=== PATIENT | female | born 1985 | race Caucasian/White ===

== ENCOUNTER 2016-06-16 09:27 | Emergency (ER) | payer OTHER ==
--- NOTE | 2016-06-16 11:48 | DIAGNOSTIC IMAGING REPORT ---
PROCEDURE: XR LUMBAR SPINE 2 OR 3 VIEWS INDICATION: TRAUMA/INJURY TECHNIQUE: Three views. COMPARISON: None. FINDINGS: Bilateral pars defects at L5-S1 with a grade 1 spondylolisthesis. IMPRESSION: 1. Bilateral L5-S1 pars defects and a grade 1 spondylolisthesis.
--- NOTE | 2016-06-16 11:57 | DIAGNOSTIC IMAGING REPORT ---
PROCEDURE: CT LUMBAR SPINE W/O CONTRAST INDICATION: Fall injury. TECHNIQUE: Noncontrast axial images with sagittal and coronal reformations. COMPARISON: Lumbar spine x-ray 06/16/2016. FINDINGS: Bilateral L5 spondylolysis with grade 1 L5-S1 anterolisthesis and mild disc space narrowing. No fracture or suspicious osseous lesion. Paraspinal soft tissues are normal. L1-2: Normal appearance. L2-3: Normal appearance. L3-4: Normal appearance. L4-5: Normal appearance L5-S1: Grade 1 anterolisthesis with moderate broad-based disc bulge and mild left foraminal stenosis. No spinal stenosis. IMPRESSION: 1. Bilateral L5 spondylolysis with grade 1 anterolisthesis, disc bulge and mild left foraminal stenosis 2. Results discussed with Dr. Baird All CT scans at this facility use dose modulation, iterative reconstruction, and/or weight-based dosing when appropriate to reduce radiation dose to as low as reasonably achievable.
--- NOTE | 2016-06-16 12:08 | ED CLINICAL REPORT ---
Clinical Report - Physicians/Mid Levels [facility] [address] [place] [address] 06/16/2016 9:27 [id number] Time Seen: 10:01 Jun 16 2016. Arrived- By private vehicle. Historian- patient. CPT: ER phys charges level 4 (#[id number]). HISTORY OF PRESENT ILLNESS Chief Complaint: BACK INJURY and BACK PAIN. It is described as being moderate in degree and in the area of the lower lumbar spine. The quality is noted to be sharp, aching and "pain". No radiation. (Patient states "I tripped on my dog when I was coming down the stairs and I landed on my back".). She has had trouble walking. The patient has been limping when trying to walk. No numbness, weakness or tingling.). It is still present. No bladder dysfunction, bowel dysfunction, sensory loss or motor loss. Patient notes an injury. No other injury. Similar symptoms previously: None. Recent medical care: Not recently seen/assessed. REVIEW OF SYSTEMS No fever, chills, difficulty with urination, urinary frequency or hematuria. No skin rash, sore throat, cough, difficulty breathing or chest pain. No abdominal pain, nausea, vomiting, diarrhea or black stools. All systems otherwise negative, except as recorded above. PAST HISTORY Hypokalemia. Abnormal Test. UTI - Urinary Tract Infection. Gastritis. Vomiting. Pyelonephritis. Abd pain . Dyspnea. SOB. Bronchitis. Bronchospasm. Back Pain. Crush Injury, Upper Extremity. Contusion. Laceration. Medications: None. Allergies: Codeine. SOCIAL HISTORY Heavy tobacco smoker (cigarette)- less than 1 pack per day. No alcohol use or drug use. ADDITIONAL NOTES The nursing notes have been reviewed. PHYSICAL EXAM Vital Signs: 06/16/2016 09:35 BP: 130/78. HR: 85. RR: 14. O2 saturation: 99%. Temp: 98.3 F. Pain level now: 8/10. Appearance: Alert. Appears to be in pain. Patient in moderate distress. HEENT: Normal external inspection. ENT: Pharynx normal. Neck: Normal inspection. Neck nontender. Painless ROM. CVS: Heart sounds normal. Pulses normal. Respiratory: No respiratory distress. Breath sounds normal. Abdomen: Soft and nontender. Bowel sounds normal. Back: Muscle spasm of the back. Mild vertebral point tenderness over the lower lumbar spine. Moderate soft tissue tenderness in the left lower and lower central lumbar area. Limited ROM in the back. (Swelling and ecchymosis over the lower back.). Skin: Skin warm. Normal skin color. No rash. Extremities: Extremities exhibit normal ROM. Extremities nontender. Neuro: Oriented X 3. Mood/affect normal. No motor deficit. No sensory deficit. Reflexes normal. LABS, X-RAYS, AND EKG LS-Spine X-rays: (Question of L5 frature.). Views: AP, lateral and coned down view. Technique: good. The X-rays were independently viewed by me and interpreted contemporaneously by me. CT L-Spine: No acute findings. Note- Chronic congenital changes L5-S1. The study was independently viewed by me, interpreted by the radiologist and discussed with the radiologist. PROGRESS AND PROCEDURES Course of Care: HEplock Dilaudid 1 mg IV Ativan 1 mg IV Vicodin 2 po Soma 1 po motrin 600 mg po Patient is stable. Symptoms much better. Patient/family counseled. Disposition: Discharged. Condition: stable. CLINICAL IMPRESSION Single contusion with soft tissue hematoma to the lower back. Fall from stairs and on same level by slipping. INSTRUCTIONS Limit lifting. No strenuous activity. Warnings: SEDATIVE MEDICATION: You were given sedative medication during your visit. Do not drive or operate dangerous machinery. Prescription Medications: Hydrocodone/APAP 5mg/325mg: take 1 to 2 orally every 6 hours as needed for pain. Dispense fifteen (15). No refills. Ibuprofen 600mg tablets: take 1 tablet orally every 8 hours as needed for pain. Dispense thirty (30). No refills. Robaxin 750 mg: Take 2 orally every 6 hours as needed for muscle spasm. Dispense thirty (30). No refills. Substitution is permissible. Follow-up: Follow up with your doctor in one week. Call for an appointment. Understanding of the discharge instructions verbalized by patient. (Electronically signed by Scott Baird MD 06/19/2016 23:18)
--- NOTE | 2016-06-16 12:08 | ED NURSING NOTES ---
Clinical Report - Nurses [facility] [address] [place] [address] 06/16/2016 9:27 [id number] Triage time 09:35. Acuity: LEVEL 4. Chief Complaint: BACK PAIN. 09:42 06/16/16. Alert. No acute distress. SEPSIS SCREEN: Sepsis Screen. Negative (no infection suspected/documented). [place] COMA SCORE: [place] Coma Scale: 15- eyes open spontaneously (4); best verbal response- oriented x 4 (5); best motor response- obeys commands (6). --09:42 Nella Riojas R.N. 09:35 06/16/16. BP: 130/78. HR: 85. RR: 14. O2 saturation: 99%. Temp: 98.3 F. Pain level now: 10/12. --09:42 Nella Riojas R.N. Weight: 65.7 kg. Height/Length: 67 inches. BMI: 22.7. --09:40 Nella Riojas R.N. Medications None. --09:39 Nella Riojas R.N. Allergies Codeine. --09:39 Nella Riojas R.N. History Arrived by private vehicle. Historian: patient. Primary physician (Dr Hyman). ( Patient states she has an appointment with her PCP on Sunday). Onset. (2 days ago). ( Patient states "I tripped on my dog when I was coming down the stairs and I landed on my back".). She has had trouble walking. The patient has been limping when trying to walk. No numbness, weakness or tingling. 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 (Patient states she used ice and muscle relaxers that were prescribed from a previous injury.). PAST MEDICAL HX: Tetanus status: up-to-date. Immunizations: up-to-date. Last normal menstrual period was 1 week ago. Denies current . SOCIAL HX: Heavy tobacco smoker- less than 1 pack per day. No alcohol use or drug use. FALL RISK ASSESSMENT: Fall risk assessment completed. No fall risk identified. NUTRITIONAL RISK ASSESSMENT: The nutritional risk assessment revealed no deficiencies. FUNCTIONAL ASSESSMENT: Functional assessment: no impairments noted. LEARNING NEEDS ASSESSMENT: The learning needs assessment revealed no barriers. SKIN INTEGRITY ASSESSMENT: Skin integrity risk assessment completed. No skin integrity risk identified. --09:42 Nella Riojas R.N. PROBLEMS: Hypokalemia. Abnormal Test. UTI - Urinary Tract Infection. Gastritis. Vomiting. Pyelonephritis. Abd pain . Dyspnea. SOB. Bronchitis. Bronchospasm. Back Pain. Crush Injury, Upper Extremity. Contusion. Laceration. Tetanus Status. LNMP - Last Normal Menstrual Period. --09:39 Nella Riojas R.N. ADDITIONAL SURGERIES: Breast Biopsy. --09:39 Nella Riojas R.N. Interventions ID band on patient. To treatment room. --09:42 Nella Riojas R.N. PHYSICAL ASSESSMENT 09:47 06/16/16. Ambulatory to room. ( Bruising and tenderness noted approximately 2 inches left of lower lumbar spine.). GENERAL / NEURO / PSYCH: Alert. Oriented X 4. Appears in pain. (patient appears to be in pain while walking.). RESPIRATORY: Respirations not labored. CVS: Capillary refill less than 2 seconds. BACK: ROM of neck and back within normal limits. --09:47 Nella Riojas R.N. NURSING PROGRESS NOTES 09:48 06/16/16. Two patient identifiers checked. Call light placed in reach. Side rails up x 1. Bed placed in lowest position. Brakes of bed on. Patient ready for evaluation- chart flagged and notification provided. --09:48 Nella Riojas R.N. 10:29 06/16/16. Patient walked to radiology with tech. --10:29 Nella Riojas R.N. 10:38 06/16/16. Patient walked back to ED from radiology with tech. --10:38 Nella Riojas R.N. 10:51 06/16/16. ( Patient reported 9/10 pain at 10:40. Dr Baird notified. This RN provided education to patient regarding her plan of care and pain management. Patient verbalized understanding.). --10:51 Nella Riojas R.N. 11:00. ( Patient refused IV placement and IV medications. Verbal orders given to this RN for IM dilaudid 1mg and IM ativan 1mg.). --11:16 Nella Riojas R.N. 11:29 06/16/16. Patient walked to AR with tech. --11:29 Nella Riojas R.N. 11:31 06/16/16. ( Patient was at AR when this RN went in room to give medication. Patient's nickel plant operator was instructed to tell the patient to hit her call dooley when she returns so that she can receive medication.). --11:31 Nella Riojas R.N. 11:42 06/16/2016 Dilaudid IM 1 mg (HIGH ALERT MEDICATION, NOW) was refused by patient because of concern over the side effects (Patient states, "I don't want a shot. I don't want to feel like I'm on a cloud all day."). Nella Riojas --11:42 Nella Riojas R.N. 11:43 06/16/2016 LORazepam IM 1 mg (HIGH ALERT MEDICATION, NOW) was refused by patient (Patient states "I don't want a shot."). Nella Riojas --11:43 Nella Riojas R.N. 11:45 06/16/16. ( Patient refused IM medication. Patient reports concerns about the side effects of dilaudid. Patient also states, "I don't want a shot. I want to wait until we know if I can take an oral medication". Dr. Baird notified.). --11:45 Nella Riojas R.N. 11:45 06/16/16. Patient informed about reason for wait and about plan of care. --11:45 Nella Riojas R.N. 12:24 06/16/2016 Hydrocodone-APAP (Hydrocodone-Acetaminophen) PO 5/325 mg Tablets 2 tab given. Allergies verified, confirmed 5 rights and sedative warning given to the patient. --12:24 Nella Riojas R.N. 12:24 06/16/2016 Soma (Carisoprodol) PO Tablets 350 mg given. Allergies verified, confirmed 5 rights and sedative warning given to the patient. --12:24 Nella Riojas R.N. 12:26 06/16/2016 Ibuprofen PO 600 mg (NOW) was refused by patient because of Patient states "my eyes turn yellow when I take too much Ibuprofen.". Nella Riojas --12:26 Nella Riojas R.N. DISPOSITION / DISCHARGE 12:27 06/16/16. No learning barriers present. Discharge instructions provided and reviewed with the patient. Reviewed warnings. Reviewed medication(s). Treatments reviewed. Activity restrictions reviewed. Work note given. Patient verbalized understanding. Written instructions provided in Cypriot. The patient was discharged by the physician. She was discharged home and accompanied by nickel plant operator. She left the Emergency Department ambulatory and via private vehicle. Hand Grinder driving. --12:27 Nella Riojas R.N. 12:26 06/16/16. BP: 139/89. HR: 76. RR: 15. O2 saturation: 99%. Temp: 98.5 F. Pain level now: 11/12. --12:27 Nella Riojas R.N. Locked/Released at 06/16/2016 12:35 by Nella Riojas R.N.
--- NOTE | 2016-06-16 12:08 | ED CLINICAL REPORT ---
Clinical Report - Physicians/Mid Levels [facility] [address] [place] [address] 06/16/2016 9:27 [id number] Time Seen: 10:01 Jun 16 2016. Arrived- By private vehicle. Historian- patient. CPT: ER phys charges level 4 (#[id number]). HISTORY OF PRESENT ILLNESS Chief Complaint: BACK INJURY and BACK PAIN. It is described as being moderate in degree and in the area of the lower lumbar spine. The quality is noted to be sharp, aching and "pain". No radiation. (Patient states "I tripped on my dog when I was coming down the stairs and I landed on my back".). She has had trouble walking. The patient has been limping when trying to walk. No numbness, weakness or tingling.). It is still present. No bladder dysfunction, bowel dysfunction, sensory loss or motor loss. Patient notes an injury. No other injury. Similar symptoms previously: None. Recent medical care: Not recently seen/assessed. REVIEW OF SYSTEMS No fever, chills, difficulty with urination, urinary frequency or hematuria. No skin rash, sore throat, cough, difficulty breathing or chest pain. No abdominal pain, nausea, vomiting, diarrhea or black stools. All systems otherwise negative, except as recorded above. PAST HISTORY Hypokalemia. Abnormal Test. UTI - Urinary Tract Infection. Gastritis. Vomiting. Pyelonephritis. Abd pain . Dyspnea. SOB. Bronchitis. Bronchospasm. Back Pain. Crush Injury, Upper Extremity. Contusion. Laceration. Medications: None. Allergies: Codeine. SOCIAL HISTORY Heavy tobacco smoker (cigarette)- less than 1 pack per day. No alcohol use or drug use. ADDITIONAL NOTES The nursing notes have been reviewed. PHYSICAL EXAM Vital Signs: 06/16/2016 09:35 BP: 130/78. HR: 85. RR: 14. O2 saturation: 99%. Temp: 98.3 F. Pain level now: 8/10. Appearance: Alert. Appears to be in pain. Patient in moderate distress. HEENT: Normal external inspection. ENT: Pharynx normal. Neck: Normal inspection. Neck nontender. Painless ROM. CVS: Heart sounds normal. Pulses normal. Respiratory: No respiratory distress. Breath sounds normal. Abdomen: Soft and nontender. Bowel sounds normal. Back: Muscle spasm of the back. Mild vertebral point tenderness over the lower lumbar spine. Moderate soft tissue tenderness in the left lower and lower central lumbar area. Limited ROM in the back. (Swelling and ecchymosis over the lower back.). Skin: Skin warm. Normal skin color. No rash. Extremities: Extremities exhibit normal ROM. Extremities nontender. Neuro: Oriented X 3. Mood/affect normal. No motor deficit. No sensory deficit. Reflexes normal. LABS, X-RAYS, AND EKG LS-Spine X-rays: (Question of L5 frature.). Views: AP, lateral and coned down view. Technique: good. The X-rays were independently viewed by me and interpreted contemporaneously by me. CT L-Spine: No acute findings. Note- Chronic congenital changes L5-S1. The study was independently viewed by me, interpreted by the radiologist and discussed with the radiologist. PROGRESS AND PROCEDURES Course of Care: HEplock Dilaudid 1 mg IV Ativan 1 mg IV Vicodin 2 po Soma 1 po motrin 600 mg po Patient is stable. Symptoms much better. Patient/family counseled. Disposition: Discharged. Condition: stable. CLINICAL IMPRESSION Single contusion with soft tissue hematoma to the lower back. Fall from stairs and on same level by slipping. INSTRUCTIONS Limit lifting. No strenuous activity. Warnings: SEDATIVE MEDICATION: You were given sedative medication during your visit. Do not drive or operate dangerous machinery. Prescription Medications: Hydrocodone/APAP 5mg/325mg: take 1 to 2 orally every 6 hours as needed for pain. Dispense fifteen (15). No refills. Ibuprofen 600mg tablets: take 1 tablet orally every 8 hours as needed for pain. Dispense thirty (30). No refills. Robaxin 750 mg: Take 2 orally every 6 hours as needed for muscle spasm. Dispense thirty (30). No refills. Substitution is permissible. Follow-up: Follow up with your doctor in one week. Call for an appointment. Understanding of the discharge instructions verbalized by patient. (Electronically signed by Scott Baird MD 06/19/2016 23:18)
--- NOTE | 2016-06-16 12:08 | ED ORDER SUMMARY ---
..... Patient: KAMRON MARTEL [facility] VisitID: [id number] [place] [address] 30y, F Registration Date/Time: 06/16/2016 ORDER SHEET Weight: 65.7 kg Allergies: Codeine GENERAL ORDERS: Lumbar Spine 2 or 3V Urgent (10:15 06/16/2016 Reggie KEARNEY) (Ack 10:24 LNations ER Tech1) (10:37 RMarsden R.N.) CT Lumbar Spine wo Cont Urgent (10:56 06/16/2016 Reggie KEARNEY) (Ack 10:56 LNations ER Tech1) (11:31 RMarsden R.N.) MEDICATION ORDERS: Dilaudid IM 1 mg (HIGH ALERT MEDICATION, NOW) (11:13 06/16/2016 RMarsden R.N. verbal order read back to Reggie KEARNEY) (Ack 11:14 RMarsden R.N.) Verbal order read back and verified LORazepam IM 1 mg (HIGH ALERT MEDICATION, NOW) (11:13 06/16/2016 RMarsden R.N. verbal order read back to Reggie KEARNEY) (Ack 11:14 RMarsden R.N.) Verbal order read back and verified Hydrocodone-APAP PO 10/650 mg (NOW) (12:05 06/16/2016 Reggie KEARNEY) (Ack 12:12 RMarsden R.N.) (12:24 RMarsden R.N.) Soma PO 350 mg (NOW) (12:06 06/16/2016 Reggie KEARNEY) (Ack 12:12 RMarsden R.N.) (12:24 RMarsden R.N.) Ibuprofen PO 600 mg (NOW) (12:06/16/2016 Reggie KEARNEY) (Ack 12:12 RMarsden R.N.) IV FLUIDS: IV NS : initial bolus none -, then 250 mL/hr for 4h (NOW); Routine (10:56 06/16/2016 Reggie KEARNEY) (Cancelled: Patient [id number]:12 RMarsden R.N.) Dilaudid IV 0.5 mg (NOW) (10:57 06/16/2016 Reggie KEARNEY) (Cancelled: Patient [id number] Geoffrey Salvador) Ativan IV 0.5 mg (NOW) (10:57 06/16/2016 Reggie KEARNEY) (Cancelled: Patient [id number]:12 Geoffrey Salvador) ORDER SHEET NOTES: [Electronically signed by Nella Riojas R.N. (12:35 06/16/2016)] [Electronically signed by Scott Baird MD (23:18 06/19/2016)] [Electronically locked/signed by Nella Riojas R.N. (12:35 06/16/2016)]
--- NOTE | 2016-06-16 12:08 | ED ORDER SUMMARY ---
..... Patient: KAMRON MARTEL OrderSheet [facility] VisitID: [id number] [place] [address] 30y, F Registration Date/Time: 06/16/2016 ORDER SHEET Weight: 65.7 kg Allergies: Codeine GENERAL ORDERS: Lumbar Spine 2 or 3V Urgent (10:15 06/16/2016 Reggie KEARNEY) (Ack 10:24 LNations ER Tech1) (10:37 RMarsden R.N.) CT Lumbar Spine wo Cont Urgent (10:56 06/16/2016 Reggie KEARNEY) (Ack 10:56 LNations ER Tech1) (11:31 RMarsden R.N.) MEDICATION ORDERS: Dilaudid IM 1 mg (HIGH ALERT MEDICATION, NOW) (11:13 06/16/2016 RMarsden R.N. verbal order read back to Reggie KEARNEY) (Ack 11:14 RMarsden R.N.) Verbal order read back and verified LORazepam IM 1 mg (HIGH ALERT MEDICATION, NOW) (11:13 06/16/2016 RMarsden R.N. verbal order read back to Reggie KEARNEY) (Ack 11:14 RMarsden R.N.) Verbal order read back and verified Hydrocodone-APAP PO 10/650 mg (NOW) (12:05 06/16/2016 Reggie KEARNEY) (Ack 12:12 RMarsden R.N.) (12:24 RMarsden R.N.) Soma PO 350 mg (NOW) (12:06 06/16/2016 Reggie KEARNEY) (Ack 12:12 RMarsden R.N.) (12:24 RMarsden R.N.) Ibuprofen PO 600 mg (NOW) (12:06/16/2016 Reggie KEARNEY) (Ack 12:12 RMarsden R.N.) IV FLUIDS: IV NS : initial bolus none -, then 250 mL/hr for 4h (NOW); Routine (10:56 06/16/2016 Reggie KEARNEY) (Cancelled: Patient [id number]:12 RMarsden R.N.) Dilaudid IV 0.5 mg (NOW) (10:57 06/16/2016 Reggie KEARNEY) (Cancelled: Patient [id number]:12 Geoffrey Salvador) Ativan IV 0.5 mg (NOW) (10:57 06/16/2016 Reggie KEARNEY) (Cancelled: Patient [id number]:12 Geoffrey Salvador) ORDER SHEET NOTES: [Electronically signed by Nella Riojas R.N. (12:35 06/16/2016)] [Electronically signed by Scott Baird MD (23:18 06/19/2016)] [Electronically locked/signed by Nella Riojas R.N. (12:35 06/16/2016)]
--- NOTE | 2016-06-16 12:08 | ED NURSING NOTES ---
Clinical Report - Nurses [facility] [address] [place] [address] 06/16/2016 9:27 [id number] Triage time 09:35. Acuity: LEVEL 4. Chief Complaint: BACK PAIN. 09:42 06/16/16. Alert. No acute distress. SEPSIS SCREEN: Sepsis Screen. Negative (no infection suspected/documented). [place] COMA SCORE: [place] Coma Scale: 15- eyes open spontaneously (4); best verbal response- oriented x 4 (5); best motor response- obeys commands (6). --09:42 Nella Riojas R.N. 09:35 06/16/16. BP: 130/78. HR: 85. RR: 14. O2 saturation: 99%. Temp: 98.3 F. Pain level now: 10/12. --09:42 Nella Riojas R.N. Weight: 65.7 kg. Height/Length: 67 inches. BMI: 22.7. --09:40 Nella Riojas R.N. Medications None. --09:39 Nella Riojas R.N. Allergies Codeine. --09:39 Nella Riojas R.N. History Arrived by private vehicle. Historian: patient. Primary physician (Dr Hyman). ( Patient states she has an appointment with her PCP on Sunday). Onset. (2 days ago). ( Patient states "I tripped on my dog when I was coming down the stairs and I landed on my back".). She has had trouble walking. The patient has been limping when trying to walk. No numbness, weakness or tingling. 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 (Patient states she used ice and muscle relaxers that were prescribed from a previous injury.). PAST MEDICAL HX: Tetanus status: up-to-date. Immunizations: up-to-date. Last normal menstrual period was 1 week ago. Denies current . SOCIAL HX: Heavy tobacco smoker- less than 1 pack per day. No alcohol use or drug use. FALL RISK ASSESSMENT: Fall risk assessment completed. No fall risk identified. NUTRITIONAL RISK ASSESSMENT: The nutritional risk assessment revealed no deficiencies. FUNCTIONAL ASSESSMENT: Functional assessment: no impairments noted. LEARNING NEEDS ASSESSMENT: The learning needs assessment revealed no barriers. SKIN INTEGRITY ASSESSMENT: Skin integrity risk assessment completed. No skin integrity risk identified. --09:42 Nella Riojas R.N. PROBLEMS: Hypokalemia. Abnormal Test. UTI - Urinary Tract Infection. Gastritis. Vomiting. Pyelonephritis. Abd pain . Dyspnea. SOB. Bronchitis. Bronchospasm. Back Pain. Crush Injury, Upper Extremity. Contusion. Laceration. Tetanus Status. LNMP - Last Normal Menstrual Period. --09:39 Nella Riojas R.N. ADDITIONAL SURGERIES: Breast Biopsy. --09:39 Nella Riojas R.N. Interventions ID band on patient. To treatment room. --09:42 Nella Riojas R.N. PHYSICAL ASSESSMENT 09:47 06/16/16. Ambulatory to room. ( Bruising and tenderness noted approximately 2 inches left of lower lumbar spine.). GENERAL / NEURO / PSYCH: Alert. Oriented X 4. Appears in pain. (patient appears to be in pain while walking.). RESPIRATORY: Respirations not labored. CVS: Capillary refill less than 2 seconds. BACK: ROM of neck and back within normal limits. --09:47 Nella Riojas R.N. NURSING PROGRESS NOTES 09:48 06/16/16. Two patient identifiers checked. Call light placed in reach. Side rails up x 1. Bed placed in lowest position. Brakes of bed on. Patient ready for evaluation- chart flagged and notification provided. --09:48 Nella Riojas R.N. 10:29 06/16/16. Patient walked to radiology with tech. --10:29 Nella Riojas R.N. 10:38 06/16/16. Patient walked back to ED from radiology with tech. --10:38 Nella Riojas R.N. 10:51 06/16/16. ( Patient reported 9/10 pain at 10:40. Dr Barid notified. This RN provided education to patient regarding her plan of care and pain management. Patient verbalized understanding.). --10:51 Nella Riojas R.N. 11:00. ( Patient refused IV placement and IV medications. Verbal orders given to this RN for IM dilaudid 1mg and IM ativan 1mg.). --11:16 Nella Riojas R.N. 11:29 06/16/16. Patient walked to ID with tech. --11:29 Nella Riojas R.N. 11:31 06/16/16. ( Patient was at ID when this RN went in room to give medication. Patient's reproductive surgeon was instructed to tell the patient to hit her call dooley when she returns so that she can receive medication.). --11:31 Nella Riojas R.N. 11:42 06/16/2016 Dilaudid IM 1 mg (HIGH ALERT MEDICATION, NOW) was refused by patient because of concern over the side effects (Patient states, "I don't want a shot. I don't want to feel like I'm on a cloud all day."). Nella Riojas --11:42 Nella Riojas R.N. 11:43 06/16/2016 LORazepam IM 1 mg (HIGH ALERT MEDICATION, NOW) was refused by patient (Patient states "I don't want a shot."). Nella Riojas --11:43 Nella Riojas R.N. 11:45 06/16/16. ( Patient refused IM medication. Patient reports concerns about the side effects of dilaudid. Patient also states, "I don't want a shot. I want to wait until we know if I can take an oral medication". Dr. Baird notified.). --11:45 Nella Riojas R.N. 11:45 06/16/16. Patient informed about reason for wait and about plan of care. --11:45 Nella Riojas R.N. 12:24 06/16/2016 Hydrocodone-APAP (Hydrocodone-Acetaminophen) PO 5/325 mg Tablets 2 tab given. Allergies verified, confirmed 5 rights and sedative warning given to the patient. --12:24 Nella Riojas R.N. 12:24 06/16/2016 Soma (Carisoprodol) PO Tablets 350 mg given. Allergies verified, confirmed 5 rights and sedative warning given to the patient. --12:24 Nella Riojas R.N. 12:26 06/16/2016 Ibuprofen PO 600 mg (NOW) was refused by patient because of Patient states "my eyes turn yellow when I take too much Ibuprofen.". Nella Riojas --12:26 Nella Riojas R.N. DISPOSITION / DISCHARGE 12:27 06/16/16. No learning barriers present. Discharge instructions provided and reviewed with the patient. Reviewed warnings. Reviewed medication(s). Treatments reviewed. Activity restrictions reviewed. Work note given. Patient verbalized understanding. Written instructions provided in Iraqi. The patient was discharged by the physician. She was discharged home and accompanied by reproductive surgeon. She left the Emergency Department ambulatory and via private vehicle. Technical Clerk driving. --12:27 Nella Riojas R.N. 12:26 06/16/16. BP: 139/89. HR: 76. RR: 15. O2 saturation: 99%. Temp: 98.5 F. Pain level now: 11/12. --12:27 Nella Riojas R.N. Locked/Released at 06/16/2016 12:35 by Nella Riojas R.N.
--- NOTE | 2016-06-19 23:18 | ED MAR SUMMARY ---
..... Medication Administration Record [facility] [address] [place] [address] Patient: KAMRON MARTEL Visit ID: [id number] 30y, F Weight: 65.7 kg Height/Length: 67 in BMI: 22.7 ALLERGIES: Codeine Given 12:24 06/16/2016 Nella Riojas, RMariaaN. Medication Administered: HYDROCODONE-APAP [PO] (HYDROCODONE-ACETAMINOPHEN), Dose: 2 tab 5/325 mg Tablets PO. Medication Ordered: Hydrocodone-APAP PO 10/650 mg (NOW). Given 12:24 06/16/2016 Nella Riojas, R.N. Medication Administered: SOMA [PO] (CARISOPRODOL), Dose: 350 mg Tablets PO. Medication Ordered: Soma PO 350 mg (NOW).
--- NOTE | 2016-06-19 23:18 | ED MAR SUMMARY ---
..... Medication Administration Record [facility] [address] [place] [address] Patient: KAMRON MARTEL Visit ID: [id number] 30y, F Weight: 65.7 kg Height/Length: 67 in BMI: 22.7 ALLERGIES: Codeine Given 12:24 06/16/2016 Nella Riojas, RMariaaN. Medication Administered: HYDROCODONE-APAP [PO] (HYDROCODONE-ACETAMINOPHEN), Dose: 2 tab 5/325 mg Tablets PO. Medication Ordered: Hydrocodone-APAP PO 10/650 mg (NOW). Given 12:24 06/16/2016 Nella Riojas, R.N. Medication Administered: SOMA [PO] (CARISOPRODOL), Dose: 350 mg Tablets PO. Medication Ordered: Soma PO 350 mg (NOW).
--- NOTE | 2016-06-19 23:18 | ED MED RECONCILIATION SUMMARY ---
Patient: KAMRON MARTEL Medication Reconciliation Report [facility] VisitID: [id number] [place] [address] 30y, F Registration Date/Time: 06/16/2016 Weight: 65.7 kg Height/Length: 67 in. BMI: 22.7 ALLERGIES: Codeine The patient's Home Medications are listed below: NONE. The source(s) of the original Home Medication information: Not obtained. The following Medications were given to the patient in the Emergency Department: Hydrocodone-APAP [PO] PO 2 tab, administered: 06/16/2016 12:24:00 PM Soma [PO] PO 350 mg, administered: 06/16/2016 12:24:00 PM The following Medications were prescribed to the patient: Hydrocodone/APAP 5mg/325mg: take 1 to 2 orally every 6 hours as needed for pain. Dispense fifteen (15). No refills. -- Scott Baird MD Ibuprofen 600mg tablets: take 1 tablet orally every 8 hours as needed for pain. Dispense thirty (30). No refills. -- Scott Baird MD Robaxin 750 mg: Take 2 orally every 6 hours as needed for muscle spasm. Dispense thirty (30). No refills. Substitution is permissible. -- Scott Baird MD
--- NOTE | 2016-06-19 23:18 | ED MED RECONCILIATION SUMMARY ---
Patient: KAMRON MARTEL Medication Reconciliation Report [facility] VisitID: [id number] [place] [address] 30y, F Registration Date/Time: 06/16/2016 Weight: 65.7 kg Height/Length: 67 in. BMI: 22.7 ALLERGIES: Codeine The patient's Home Medications are listed below: NONE. The source(s) of the original Home Medication information: Not obtained. The following Medications were given to the patient in the Emergency Department: Hydrocodone-APAP [PO] PO 2 tab, administered: 06/16/2016 12:24:00 PM Soma [PO] PO 350 mg, administered: 06/16/2016 12:24:00 PM The following Medications were prescribed to the patient: Hydrocodone/APAP 5mg/325mg: take 1 to 2 orally every 6 hours as needed for pain. Dispense fifteen (15). No refills. -- Scott Baird MD Ibuprofen 600mg tablets: take 1 tablet orally every 8 hours as needed for pain. Dispense thirty (30). No refills. -- Scott Baird MD Robaxin 750 mg: Take 2 orally every 6 hours as needed for muscle spasm. Dispense thirty (30). No refills. Substitution is permissible. -- Scott Baird MD
--- NOTE | 2016-06-19 23:18 | ED DISCHARGE INSTRUCTIONS ---
Patient: KAMRON MARTEL General Instructions [facility] VisitID: [id number] [place] [address] 30y, F Registration Date/Time: 06/16/2016 Single contusion with soft tissue hematoma to the lower back. Fall from stairs and on same level by slipping. INSTRUCTIONS Limit lifting. No strenuous activity. Warnings: SEDATIVE MEDICATION: You were given sedative medication during your visit. Do not drive or operate dangerous machinery. Prescription Medications: Hydrocodone/APAP 5mg/325mg: take 1 to 2 orally every 6 hours as needed for pain. Dispense fifteen (15). No refills. Ibuprofen 600mg tablets: take 1 tablet orally every 8 hours as needed for pain. Dispense thirty (30). No refills. Robaxin 750 mg: Take 2 orally every 6 hours as needed for muscle spasm. Dispense thirty (30). No refills. Substitution is permissible. Follow-up: Follow up with your doctor in one week. Call for an appointment. Understanding of the discharge instructions verbalized by patient. ADDITIONAL INFORMATION Mechanical Fall You have had a fall today. It appears that the cause is mechanical. That means that you slipped, tripped or lost your balance. If your fall had been due to fainting or a seizure, further tests would be required. Home Care: Rest today and resume your normal activities when you are feeling back to normal. If you were injured during the fall, follow the advice from your doctor regarding care of your injury. You may use acetaminophen (Tylenol) or ibuprofen (Motrin, Advil) to control pain, unless another pain medicine was prescribed. [NOTE: If you have chronic liver or kidney disease or ever had a stomach ulcer or GI bleeding, talk with your doctor before using these medicines.] Fall Prevention: Was there anything that caused your fall that can be fixed, removed, or replaced? Make your home safe by keeping walkways clear of objects you may trip over. Use non-slip pads under rugs. Do not walk in poorly lit areas. Do not stand on chairs or wobbly ladders. Use caution when reaching overhead or looking upward. This position can cause a loss of balance. Be sure your shoes fit properly, have non-slip bottoms and are in good condition. Be cautious when going up and down curbs, and walking on uneven sidewalks. If your balance is poor, consider using a cane or walker. Stay as active as you can. Balance, flexibility, strength, and endurance all come from exercise. They all play a role in preventing falls. Follow Up with your doctor or as advised by our staff. Get Prompt Medical Attention if any of the following occur: Repeated mechanical falls, or unexplained falls Dizziness, fainting or seizure Severe headache Chest pain or shortness of breath Palpitations (very rapid or very slow or irregular heartbeat) Blood in vomit, stools (black or red color) Weakness of an arm or leg or one side of the face Difficulty with speech or vision Contusion,Soft Tissue You have a CONTUSION, which is a bruise with swelling and some bleeding under the skin. There are no broken bones. This injury takes a few days to a few weeks to heal. Home Care: 1) Keep the injured part elevated to reduce pain and swelling. This is especially important during the first 48 hours. 2) Make an ice pack (ice cubes in a plastic bag, wrapped in a towel) and apply for 20 minutes every 1-2 hours the first day. Continue this 3-4 times a day until the pain and swelling goes away. 3) You may use acetaminophen (Tylenol) or ibuprofen (Motrin, Advil) to control pain, unless another pain medicine was prescribed. [ NOTE : If you have chronic liver or kidney disease or ever had a stomach ulcer or GI bleeding, talk with your doctor before using these medicines.] Follow Up with your doctor or this facility if you are not improving within the next THREE days. [NOTE: If X-rays were taken, they will be reviewed by a radiologist. You will be notified of any new findings that may affect your care.] Get Prompt Medical Attention if any of the following occur: -- Pain or swelling increases -- Injured arm or leg becomes cold, blue, numb or tingly -- Redness, warmth or drainage from the skin You have been given the following additional information: Fall, Mechanical Contusion, Soft Tissue Limit lifting. No strenuous activity. (Electronically signed by Scott Baird MD 06/19/2016 23:18)
== END 2016-06-16 12:27 | disposition home or self-care (01) ==
LOC: ED SRH 09:27
DX: S30.0XXA Contusion of lower back and pelvis, initial encounter (principal); W10.9XXA Fall (on) (from) unspecified stairs and steps, initial encounter; Y93.9 Activity, unspecified; Y92.9 Unspecified place or not applicable; Y99.9 Unspecified external cause status